=== PATIENT | female | born 1960 | race Caucasian/White ===

== ENCOUNTER → 2020-04-12 10:51 | Outpatient (BNVA) | payer BC, SELFPAY | PROVIDERS: Family Provider Family Medicine; PCP Family Medicine; Visit Provider Family Medicine | DX: I10 Essential (primary) hypertension (principal) | CPT/HCPCS: 80053; 80061; 82044; 85025 ==

== ENCOUNTER 2020-08-11 07:39 | Outpatient (CLI) | payer BC, SELFPAY ==
--- NOTE | 2020-08-11 07:44 | MM_ITS ---
WS: [id number] BILATERAL DIGITAL SCREENING MAMMOGRAPHY WITH CAD CLINICAL INFORMATION: SCREENING HISTORY: Screening mammogram. Hardening of implants COMPARISON: TECHNIQUE: Bilateral CC and MLO views. FINDINGS: Bilateral breast implants. Scattered fibroglandular densities bilaterally. No suspicious focal mass, asymmetry, calcifications, or architectural distortion. No evidence of malignancy. MM/[id number] IMPRESSION: BI-RADS: 2-Benign FOLLOW UP: 1 Year Follow-up Recommend return to annual screening mammography.
== END 2020-08-11 07:40 | disposition home or self-care (01) ==
LOC: RADSHAW 07:42
PROVIDERS: PCP Family Medicine; Visit Provider Family Medicine
DX: Z12.31 Encounter for screening mammogram for malignant neoplasm of breast (principal)
CPT/HCPCS: 77067

== ENCOUNTER → 2021-01-11 09:03 | Outpatient (BNVA) | payer OTHER, SELFPAY | PROVIDERS: PCP Family Medicine; Visit Provider Family Medicine | DX: I10 Essential (primary) hypertension (principal); L30.9 Dermatitis, unspecified; N95.1 Menopausal and female climacteric states; B00.1 Herpesviral vesicular dermatitis | CPT/HCPCS: 80053; 80061; 82043; 85025 ==

== ENCOUNTER 2021-02-10 13:12 | Emergency (ER) | payer OTHER, SELFPAY ==
[2021-02-10 13:20] VITALS: BP 129/85; PULSE 81; RESP 16; TEMP 37; O2SAT 97; BMI 21.9
[2021-02-10 13:27] VITALS: BP 129/85; PULSE 78; RESP 16; O2SAT 97
--- NOTE | 2021-02-10 13:28 | XR_ITS ---
WS: [id number] Right ankle,, 3 views, 02/10/2021 Clinical Data: pain Comparison: None. Findings: There is a transverse fracture of the distal right fibula below the ankle mortise. The medial malleolus is intact. The ankle mortise is normal. There is a small Achilles spur. XR/XR ankle RT min 3V* [id number] Impression: Undisplaced transverse fracture of distal right fibula.
--- NOTE | 2021-02-10 13:32 | ED_ITS ---
HPI - Extremity Problem General: Chief complaint: Extremity Injury, Lower Stated complaint: L ANKLE INJURY/PAIN Time Seen by Provider: 02/10/21 13:19 History of Present Illness: HPI Narrative: She did just put horse and horse trailer stepped on a rock and twisted her right ankle. She has pain to the lateral aspect into the posterior aspect she said she had immediate swelling. Hurts to bear weight. Complaint: joint swelling and joint pain Onset (ago): minute(s) Pain Consistency: constant Location: right and lower extremity Severity scale (1-10): 3 Quality: aching Radiation: none Relieving factors: immobilization Exacerbating factors: weight bearing Associated symptoms: Reports no associated symptoms; Deny fever(s) Review of Systems Const: Denies: fever(s) or chills Musc: Reports: joint pain and joint swelling Psych: Denies: anxiety PFSH ED PFSH: Medical History (Updated 01/11/21 @ 08:57 by Becca Jensen DO) Essential hypertension Hot flashes, menopausal Surgical History H/O section History of removal of cyst Family History Other Cancer Macular degeneration Social History Smoking and tobacco status: former smoker Alcohol intake: current Alcohol intake frequency: 3 or more drinks per day Alcohol type: wine and hard liquor Physical Exam Const: COMMON NORMALS: no acute distress Extremity: RIGHT LOWER EXTREMITY: Yes foot & digits (Swelling to the lateral malleus and tenderness to the posterior aspect) Right ankle: Yes ROM (Decreased) and Yes neurovascular exam (And tach) Psych: COMMON NORMALS: mental status grossly normal Course Vital Signs: Vital signs: Vital Signs Temperature 98.6 F 02/10/21 13:20 Pulse Rate 78 02/10/21 13:27 Respiratory Rate 16 02/10/21 13:27 Blood Pressure 129/85 02/10/21 13:27 Pulse Oximetry 97 02/10/21 13:27 Discharge Plan Discharge Prescriptions: No Action fluocinonide 0.05 % solution 1 applic topical DAILY PRN (Reason: rash) Qty: 60 RF: 0 acyclovir 400 mg tablet 400 mg PO TID Qty: 21 RF: 2 estradiol [Estrace] 0.01 % (0.1 mg/gram) cream 1 gm VAGINAL .twice weekly Qty: 42.5 RF: 0 amlodipine 10 mg tablet 10 mg PO DAILY Qty: 90 RF: 1 lisinopril 10 mg tablet 10 mg PO DAILY Qty: 90 RF: 3 venlafaxine 37.5 mg tablet 37.5 mg PO DAILY Qty: 90 RF: 3 Coding Level of Care Code ED Professor Of Forestry for Christiano Nolan
--- NOTE | 2021-02-10 13:57 | PC.NURSE ---
XR performed at bedside
--- NOTE | 2021-02-11 10:50 | DCPLANNER ---
manager of software development had message to schedule a follow up appointment for patient with ortho. manager of software development called the ortho clinic, spoke with Tiffany, gave clinic patients information. manager of software development was told that patients information would be printed and reviewed. Clinic will call patient with appointment information.
--- NOTE | 2021-02-18 15:27 | DCPLANNER ---
Patient had a follow up appointment scheduled for 02.14.[address] Cordero at [facility] - patient did attend appointment.
== END 2021-02-10 14:37 | disposition home or self-care (01) ==
PROVIDERS: Emergency Provider Nurse Practitioner Family; PCP Family Medicine
DX: M25.571 Pain in right ankle and joints of right foot (principal); I10 Essential (primary) hypertension; Z87.891 Personal history of nicotine dependence
CPT/HCPCS: 29515; 73610; 99283; E0114

== ENCOUNTER → 2021-02-14 14:20 | Outpatient (BNVA) | payer OTHER, SELFPAY | PROVIDERS: PCP Family Medicine; Visit Provider Specialist | DX: S82.64XA Nondisplaced fracture of lateral malleolus of right fibula, initial encounter for closed fracture (principal); X58.XXXA Exposure to other specified factors, initial encounter | CPT/HCPCS: 73610 ==

== ENCOUNTER 2021-02-14 15:11 | Outpatient (CLI) | payer OTHER, SELFPAY | END 2021-02-14 15:12 | disposition home or self-care (01) | LOC: SPT 15:12 | PROVIDERS: PCP Family Medicine; Visit Provider Specialist | DX: Z46.89 Encounter for fitting and adjustment of other specified devices (principal); S82.831D Other fracture of upper and lower end of right fibula, subsequent encounter for closed fracture with routine healing; X58.XXXD Exposure to other specified factors, subsequent encounter | CPT/HCPCS: L1902; L4361 ==

== ENCOUNTER → 2021-02-24 11:23 | Outpatient (BNVA) | payer OTHER, SELFPAY | PROVIDERS: PCP Family Medicine; Visit Provider Specialist | DX: S82.64XA Nondisplaced fracture of lateral malleolus of right fibula, initial encounter for closed fracture (principal); S82.831A Other fracture of upper and lower end of right fibula, initial encounter for closed fracture; X58.XXXA Exposure to other specified factors, initial encounter | CPT/HCPCS: 73610 ==

== ENCOUNTER → 2021-03-21 11:28 | Outpatient (BNVA) | payer OTHER, SELFPAY | PROVIDERS: PCP Family Medicine; Visit Provider Specialist | DX: S82.64XA Nondisplaced fracture of lateral malleolus of right fibula, initial encounter for closed fracture (principal); S82.831A Other fracture of upper and lower end of right fibula, initial encounter for closed fracture; X58.XXXA Exposure to other specified factors, initial encounter | CPT/HCPCS: 73610 ==

== ENCOUNTER → 2021-05-30 00:01 | Outpatient (BNVA) | payer OTHER, SELFPAY | PROVIDERS: PCP Family Medicine; Visit Provider Obstetrics & Gynecology | DX: L30.9 Dermatitis, unspecified (principal); R35.0 Frequency of micturition; R10.2 Pelvic and perineal pain | CPT/HCPCS: 87086 ==

== ENCOUNTER → 2021-06-17 11:23 | Outpatient (BNVA) | payer OTHER, SELFPAY | PROVIDERS: PCP Family Medicine; Visit Provider Obstetrics & Gynecology | DX: R10.2 Pelvic and perineal pain (principal) | CPT/HCPCS: 76830 ==

== ENCOUNTER → 2021-07-25 10:36 | Outpatient (BNVA) | payer OTHER, SELFPAY | PROVIDERS: PCP Family Medicine; Visit Provider Family Medicine | DX: Z78.0 Asymptomatic menopausal state (principal); Z13.6 Encounter for screening for cardiovascular disorders; Z12.39 Encounter for other screening for malignant neoplasm of breast; M25.562 Pain in left knee | CPT/HCPCS: 80053; 82043 ==

== ENCOUNTER 2021-09-01 09:56 | Outpatient (CLI) | payer OTHER, SELFPAY ==
--- NOTE | 2021-09-01 10:00 | MM_ITS ---
WS: [id number] BILATERAL SCREENING MAMMOGRAM WITH BRIDGET DISPLACEMENT VIEWS. CAD PERFORMED. HISTORY: Screening evaluation. COMPARISON: 08/11/2020, 02/03/2019 Bilateral craniocaudal and mediolateral like views are performed. Bridget displacement views in CC and MLO projection also performed. Breasts composition: The breasts are heterogeneously dense, which may obscure small masses. No ramos e in appearance of the implants. Implants are prepectoral with a few folds. No suspicious masses or c alcifications. MM/[id number] IMPRESSION: BI-RADS: 2-Benign FOLLOW-UP: 1 Year Follow-up
--- NOTE | 2021-09-01 10:36 | XR_ITS ---
WS: [id number] DEXA (DUAL ENERGY X-RAY ABSORPTIOMETRY) Bone mineral density was performed using a [employer] machine. HISTORY: post menopausal COMPARISON: None available. Lumbar spine BMD (L1-L4): 0.939 g/cm2 T score: -2.0 Z score: -0.3 Total hip BMD: Left: 0.924 g/cm2. T score: -0.7 Z score: 0.6 Right: 0.870 g/cm2. T score: -1.1 Z score: 0.2 10 year probability of a major osteoporotic fracture is 14%. XR/XR DEXA axial skeleton* [id number] IMPRESSION: OSTEOPENIA based upon the WHO classification for females.
== END 2021-09-01 09:57 | disposition home or self-care (01) ==
LOC: RADSHAW 09:59
PROVIDERS: PCP Family Medicine; Visit Provider Family Medicine
DX: Z12.39 Encounter for other screening for malignant neoplasm of breast (principal); Z78.0 Asymptomatic menopausal state; M85.80 Other specified disorders of bone density and structure, unspecified site
CPT/HCPCS: 77067; 77080

== ENCOUNTER → 2022-03-15 09:48 | Outpatient (BNVA) | payer OTHER, SELFPAY | PROVIDERS: PCP Family Medicine; Visit Provider Family Medicine | DX: I10 Essential (primary) hypertension (principal) | CPT/HCPCS: 80053; 80061; 82043; 85025 ==

== ENCOUNTER → 2022-06-07 15:44 | Outpatient (BNVA) | payer OTHER, SELFPAY | PROVIDERS: PCP Family Medicine; Visit Provider Podiatrist Foot & Ankle Surgery | DX: M79.672 Pain in left foot (principal); M79.89 Other specified soft tissue disorders | CPT/HCPCS: 73630; 99203 ==

== ENCOUNTER 2022-09-05 13:21 | Outpatient (CLI) | payer OTHER, SELFPAY ==
--- NOTE | 2022-09-05 13:26 | MM_ITS ---
WS: [id number] BILATERAL 3D TOMOSYNTHESIS DIGITAL SCREENING MAMMOGRAPHY WITH CAD CLINICAL INFORMATION: SCREENING HISTORY: Screening mammogram. No current complaints. COMPARISON: September 01, 2021 TECHNIQUE: Bilateral CC and MLO views. FINDINGS: Stable prepectoral implants. Scattered fibroglandular densities bilaterally. No suspicious focal mass, asymmetry, calcifications, or architectural distortion. No evidence of malignancy. MM/[place] [id number] IMPRESSION: BI-RADS: 2-Benign FOLLOW UP: 1 Year Follow-up Recommend return to annual screening mammography.
== END 2022-09-05 13:22 | disposition home or self-care (01) ==
LOC: RAD 13:22
PROVIDERS: PCP Family Medicine; Visit Provider Family Medicine
DX: Z12.31 Encounter for screening mammogram for malignant neoplasm of breast (principal)
CPT/HCPCS: 77063; 77067

== ENCOUNTER → 2023-05-11 08:59 | Outpatient (BNVA) | payer OTHER, SELFPAY | PROVIDERS: PCP Family Medicine; Visit Provider Family Medicine | DX: I10 Essential (primary) hypertension (principal) | CPT/HCPCS: 80053; 80061; 82043; 85025 ==

== ENCOUNTER → 2023-09-06 14:51 | Outpatient (BNVA) | payer OTHER, SELFPAY | PROVIDERS: PCP Family Medicine; Visit Provider Family Medicine | DX: M54.50 Low back pain, unspecified (principal); Z01.419 Encounter for gynecological examination (general) (routine) without abnormal findings | CPT/HCPCS: 88175 ==

== ENCOUNTER 2023-09-07 09:37 | Outpatient (CLI) | payer OTHER, SELFPAY ==
--- NOTE | 2023-09-07 09:42 | MM_ITS ---
WS: [id number] BILATERAL SCREENING DIGITAL BREAST MAMMOGRAPHY WITH BRIDGET DISPLACEMENT VIEWS. CAD PERFORMED. HISTORY: screening COMPARISON: 09/05/2022 and 09/01/2021 Bilateral craniocaudal and mediolateral oblique views are performed with tomosynthesis and SM. Bridget displacement views in CC and MLO projection also performed. Breasts composition: There are scattered areas of fibroglandular density. No suspicious masses or calcifications. Prepectoral implants are intact. IMPRESSION: MM/[place] [id number] BI-RADS: 2-Benign FOLLOW-UP: 1 Year Follow-up
== END 2023-09-07 09:38 | disposition home or self-care (01) ==
LOC: RAD 09:38
PROVIDERS: PCP Family Medicine; Visit Provider Family Medicine
DX: Z12.31 Encounter for screening mammogram for malignant neoplasm of breast (principal)
CPT/HCPCS: 77063; 77067

== ENCOUNTER → 2024-03-10 10:34 | Outpatient (BNVA) | payer OTHER, SELFPAY | PROVIDERS: PCP Family Medicine; Visit Provider Family Medicine | DX: I10 Essential (primary) hypertension (principal); M54.50 Low back pain, unspecified; N95.1 Menopausal and female climacteric states; L30.9 Dermatitis, unspecified | CPT/HCPCS: 80053; 80061 ==

== ENCOUNTER 2024-03-22 10:51 | Emergency (ER) | payer OTHER, SELFPAY ==
[2024-03-22 10:59] VITALS: BP 120/80; PULSE 94; RESP 18; O2SAT 100; BMI 21.0
--- NOTE | 2024-03-22 11:02 | ED_ITS ---
HPI - Nausea/Vomiting/Diarrhea 2 General: Chief complaint: Nausea/Vomiting/Diarrhea Stated complaint: diarrhea Time Seen by Provider: 03/22/24 10:58 Source: patient Mode of arrival: ambulatory Limitations: no limitations History of Present Illness: 63-year-old female states that she had w ent to [place] she had return Sunday states since then she has been having diarrhea. States she had some increased improvement of her diarrhea today but states she has felt like she is dehydrated and weak. She states multiple people on the trip and a lot of them have been sick with the same symptoms 's had diarrhea as well. She denies any fevers denies abdominal pain Associated nausea: No Associated symtoms: Reports fatigue; Denies chest pain, headache(s) or nausea Review of Systems 2 Const: Reports: fatigue; Denies: fever(s), chills, body aches or change in appetite ENMT: Denies: throat pain or dental pain Card: Denies: chest pain Resp: Denies: dyspnea GI: Reports: diarrhea; Denies: abdominal pain, nausea or vomiting Musc: Denies: neck pain or back pain Skin/Breast: Denies: rash Neuro: Denies: headache(s) PFSH ED 2 PFSH: Medical History Closed fracture of right distal fibula Essential hypertension Hot flashes, menopausal Surgical History H/O section History of removal of cyst Family History Mother Hypertension Denies family history of Colon cancer Ovarian cancer Diabetes Breast cancer Uterine cancer Thyroid disease Stroke Social History Smoking and tobacco/nicotine status: never used tobacco/nicotine Alcohol intake: current Alcohol intake frequency: 3 or more drinks per day Alcohol type: wine and hard liquor Substance/Drug Use: never Physical Exam 2 Const: COMMON NORMALS: no acute distress, patient oriented x3 and healthy appearing HENMT: COMMON NORMALS: normocephalic and atraumatic HEAD & SCALP: n ormocephalic and atraumatic Neck/C-Spine: COMMON NORMALS: full ROM and supple Chest: COMMONS NORMALS: normal inspection of the chest Resp: COMMON NORMALS: normal respiratory effort Cardio: COMMON NORMALS: regular rate and regular rhythm RATE: regular rate RHYTHM: regular rhythm GI: COMMON NORMALS: Normal to inspection, nondistended, normoactive bowel sounds present, Soft to palpation, non-tender and no masses PALPATION: Yes Soft to palpation Extremity: COMMON NORMALS: normal to inspection and full ROM Neuro: COMMON NORMALS: patient oriented x3, moves all extremities and no focal motor deficits Psych: COMMON NORMALS: mental status grossly normal, Normal thought process present and cooperative THOUGHT PROCESS: Normal thought process present Skin: COMMON NORMALS: no rashes or lesions noted and no wounds GENERAL SKIN EXAM: no rashes or lesions noted Course 2 Vital Signs: Vital signs: Vital Signs Temperature 98.2 F 03/22/24 11:19 Pulse Rate 94 03/22/24 11:19 Respiratory Rate 18 03/22/24 11:19 Blood Pressure 120/80 03/22/24 11:19 Pulse Oximetry 97 03/22/24 11:19 Oxygen Delivery Me thod Room Air 03/22/24 11:19 MDM - Nausea/Vomiting/Diarrhea Medical Decision Making Patient presents here in diarrhea after trip to [place] she was unable to give a stool sample we will treat with Flagyl will cover possible Giardia blood work here is normal she stable for discharge she is follow-up with PCP return if worsening. Medical Records I reviewed the patient's medical records. Lab Data I reviewed the patient's lab results. 03/22/24 11:15 03/22/24 11:15 Laboratory Results WBC 4.32 10^3/uL (3.29-11.43) 03/22/24 11:15 RBC 4.00 10^6/uL (3.85-5.65) 03/22/24 11:15 Hgb 13.10 g/dL (11.27-16.99) 03/22/24 11:15 Hct 39.1 % (36-47) 03/22/24 11:15 MCV 97.8 fl (85-98) 03/22/24 11:15 MCH 32.8 pg (27-33) 03/22/24 11:15 MCHC 33.5 g/dL (30-55) 03/22/24 11:15 RDW 11.6 % (12.1-15.1) L 03/22/24 11:15 Plt Count 161 10^3/cmm (157-399) 03/22/24 11:15 MPV 8.5 fL (7.4-10.4) 03/22/24 11:15 Neut % (Auto) 52.1 % 03/22/24 11:15 Lymph % (Auto) 28.0 % 03/22/24 11:15 [facility] % (Auto) 16.9 % 03/22/24 11:15 Eos % (Auto) 2.3 % 03/22/24 11:15 Baso % (Auto) 0.5 % 03/22/24 11:15 Neut # (Auto) 2.25 10^3/uL (1.8-7.7) 03/22/24 11:15 Lymph # (Auto) 1.2 10^3/uL (0.8-4.8) 03/22/24 11:15 [facility] # (Auto) 0.7 10^3/uL (0.2-0.9) 03/22/24 11:15 Eos # (Auto) 0.1 10^3/uL (0.0-0.8) 03/22/24 11:15 Baso # (Auto) 0.0 10^3/uL (0.0-0.1) 03/22/24 11:15 Nucleated RBC % (auto) 0 % 03/22/24 11:15 Nucleated RBCs # 0.0 /100WBC 03/22/24 11:15 Sodium 136 mmol/L (136-145) 03/22/24 11:15 Potassium 3.3 mmol/L (3.5-5.1) L 03/22/24 11:15 Chloride 97 mmol/L (98-107) L 03/22/24 11:15 Carbon Dioxide 29 mmol/L (22-29) 03/22/24 11:15 Anion Gap 13.3 (5-19) 03/22/24 11:15 BUN 18 mg/dL (8-23) 03/22/24 11:15 Creatinine 0.7 mg/dL (0.5-0.9) 03/22/24 11:15 GFR Calculation 84.2 mL/min (90-130) L 03/22/24 11:15 Glucose 111 mg/dL (65-115) 03/22/24 11:15 Calculated Osmolality 285 mOsm/kg (285-295) 03/22/24 11:15 Calcium 9.6 mg/dL (8.5-10.5) 03/22/24 11:15 Total Bilirubin 0.6 mg/dL (0.15-1.2) 03/22/24 11:15 AST 35 U/L (0-32) H 03/22/24 11:15 ALT 52 U/L (0-33) H 03/22/24 11:15 Alkaline Phosphatase 79 U/L (35-105) 03/22/24 11:15 Total Protein 7.3 g/dL (6.6-8.7) 03/22/24 11:15 Albumin 4.1 g/dL (3.5-5.2) 03/22/24 11:15 Globulin 3.2 g/dL (1.3-4.6) 03/22/24 11:15 Lipase 97 U/L (13-60) H 03/22/24 11:15 No radiology studies performed this visit Discharge Plan Discharge Patient Disposition: Home Clinical Impression: Traveler's diarrhea Condition: Stable Prescriptions: New ondansetron 4 mg tablet,disintegrating 4 mg PO Q6H PRN (Reason: nausea and vomiting) Qty: 14 0RF metronidazole 500 mg tablet 500 mg PO Q12H Qty: 10 0RF No Action acyclovir 400 mg tablet 400 mg PO TID PRN (Reason: cold sores) Qty: 30 1RF Rx Instructions: Take at outset of coldsores lisinopril 10 mg tablet 10 mg PO DAILY Qty: 90 3RF venlafaxine [Effexor XR] 37.5 mg capsule,extended release 24hr 37.5 mg PO DAILY Qty: 90 1RF hydrocortisone 2.5 % cream See Rx Instructions .ROUTE .COMPLEX Rx Instructions: APPLY ONLY TO AFFECTED AREAS ON THE FACE TWICE DAILY FOR 2 WEEKS OR UNTIL RESOLVED, THEN NEEDED meloxicam 15 mg tablet 15 mg PO DAILY fluorouracil 5 % cream 1 applic topical BID PRN (Reason: SUN SPOTS) clobetasol 0.05 % cream 1 applic topical BID PRN (Reason: Skin Irritation) amlodipine 10 mg tablet 10 mg PO DAILY estradiol 0.01 % (0.1 mg/gram) cream 1 appful vaginal BID Rx Instructions: USE 1 GRAM VAGINALLY TWICE A WEEK DIRECTED Discharge Orders: Discharge ED (Routine); Ordered 03/22/24 Ordered By: Katie Lopez Referrals: Becca Jensen DO [Primary Care Provider] - 1-3 days Discharge Diet: Advance as tolerated Discharge Activity: Resume usual activity Patient Instructions: Acute Diarrhea (ED) Coding Level of Care Code ED Sort Operations Supervisor for Christiano Nolan
[2024-03-22 11:19] VITALS: BP 120/80; PULSE 94; RESP 18; TEMP 36.8; O2SAT 97
[2024-03-22 11:21] LABS: Basophils % 0.5 %; Eosinophils # 0.1 10^3/uL (0.0-0.8); Eosinophils % 2.3 %; Hematocrit 39.1 % (36-47); Lymphocytes # 1.2 10^3/uL (0.8-4.8); Mean Corpuscular HGB Conc 33.5 g/dL (30-55); Mean Corpuscular Hemoglobin 32.8 pg (27-33); Mean Corpuscular Volume 97.8 fl (85-98); Mean Platelet Volume 8.5 fL (7.4-10.4); Monocytes # 0.7 10^3/uL (0.2-0.9); Monocytes % 16.9 %; Neutrophils # 2.25 10^3/uL (1.8-7.7); Neutrophils % 52.1 %; Nucleated Red Blood Cells % 0 %; Platelet Count 161 10^3/cmm (157-399); Red Cell Distribution Width 11.6 % (12.1-15.1); White Blood Count 4.32 10^3/uL (3.29-11.43)
[2024-03-22 11:38] LABS: Alanine Aminotransferase 52 U/L (0-33); Albumin Level 4.1 g/dL (3.5-5.2); Alkaline Phosphatase 79 U/L (35-105); Anion Gap 13.3 (5-19); Aspartate Amino Transferase 35 U/L (0-32); Blood Urea Nitrogen 18 mg/dL (8-23); Calcium 9.6 mg/dL (8.5-10.5); Carbon Dioxide 29 mmol/L (22-29); Chloride 97 mmol/L (98-107); Creatinine Clr Calc Pharmacy 65.2732; Globulin 3.2 g/dL (1.3-4.6); Glomerular Filtration Rate 84.2 mL/min (90-130); Glucose 111 mg/dL (65-115); Lipase 97 U/L (13-60); Osmolality Calculated 285 mOsm/kg (285-295); Potassium 3.3 mmol/L (3.5-5.1); Sodium 136 mmol/L (136-145); Total Bilirubin 0.6 mg/dL (0.15-1.2); Total Protein 7.3 g/dL (6.6-8.7)
[2024-03-22] MEDS: sodium chloride 0.9% 1,000 ML 999 ML IV (11:39)
[2024-03-22] MEDS: ondansetron 2 mg/ML SDV 2 mL 4 MG IVP (11:40)
[2024-03-22 12:50] VITALS: BP 110/63; PULSE 85; RESP 16; O2SAT 91
[2024-03-22 13:42] LABS: C.Diff PCR (Lab) NEGATIVE (Negative)
== END 2024-03-22 12:51 | disposition home or self-care (01) ==
PROVIDERS: Emergency Provider Emergency Medicine; PCP Family Medicine
DX: A08.8 Other specified intestinal infections (principal); I10 Essential (primary) hypertension
CPT/HCPCS: 80053; 83690; 85025; 87493; 96374; 99284; J2405; J7030

== ENCOUNTER 2024-09-08 08:59 | Outpatient (CLI) | payer OTHER, SELFPAY ==
--- NOTE | 2024-09-08 09:03 | MM_ITS ---
WS: [id number] BILATERAL SCREENING DIGITAL BREAST MAMMOGRAPHY WITH BRIDGET DISPLACEMENT VIEWS. CAD PERFORMED. HISTORY: SCREENING COMPARISON: 09/07/2023, 09/05/2022 Bilateral craniocaudal and mediolateral oblique views are performed with tomosynthesis and SM. Bridget displacement views in CC and MLO projection also performed. Breasts composition: The breasts are heterogeneously dense, which may obscure small masses. Prepectoral implants are intact. No suspicious masses or calcifications. No distortion of either [facility] [facility]. MM/MM scr BI tomosynthesis [id number] IMPRESSION: BI-RADS: 2 - Benign FOLLOW-UP: 1 Year Follow-up
== END 2024-09-08 09:00 | disposition home or self-care (01) ==
PROVIDERS: PCP Family Medicine; Visit Provider Family Medicine
DX: Z12.31 Encounter for screening mammogram for malignant neoplasm of breast (principal)
CPT/HCPCS: 77063; 77067

== ENCOUNTER → 2025-02-03 11:37 | Outpatient (BNVA) | payer OTHER, SELFPAY | PROVIDERS: PCP Family Medicine; Visit Provider Family Medicine | DX: I10 Essential (primary) hypertension (principal) | CPT/HCPCS: 80053; 80061; 84439; 84443; 85025 ==

== ENCOUNTER 2025-07-28 06:07 | Day surgery (SDC) | payer OTHER, SELFPAY ==
[2025-07-28 06:20] VITALS: BP 119/67; PULSE 76; RESP 18; TEMP 36.6; O2SAT 96; BMI 21.9
--- NOTE | 2025-07-28 06:59 | ANES.PREANE2 ---
Pre-Anesthetic Assessment Height/Weight: Height 1.57 m Weight 54.431 kg Temp Pulse Resp BP Pulse Ox O2 Del Method 97.9 F 76 18 119/67 96 Room Air 07/28/25 06:20 07/28/25 06:20 07/28/25 06:20 07/28/25 06:20 07/28/25 06:20 07/28/25 06:20 Preop Diagnosis: screening Operation Date: 07/28/25 07:00 Proposed Procedures p Colonoscopy 06162 G0121 Z12.11(Not Applicable) - Franky Mendez MD Familial anesthetic complications: none Was Beta Danny taken within 24 hours: N/A Was Clonidine taken within 24 hours: N/A Last intake: Intake Last Liquid Date 07/27/25 Last Liquid Time 23:00 Last Solid Date 07/26/25 Last Solid Time 19:00 Social Alcohol (2-3 glasses of red wine/night) and Tobacco Exam alert and oriented x 3 Airway Submandibular: within normal limits Cervical ROM: within normal limits Mallampati: Class II Dentition: full History/ROS No significant history except as noted Pulmonary None reported CV/HEM Hypertension None reported Hepatic None reported GI None reported Metabolic None reported Musc/skel None reported Neuropsych None reported Anesthetic Plan ASA status: 2 Anesthesia: Anesthesia Evaluation and MAC Risk of > 500 ml blood loss (7ml/kg in children): No Medications/Allergies Home Medications ?Medication ?Instructions ?Recorded ?Confirmed ?Last Taken ?Type acyclovir 400 mg tablet 400 mg PO TID PRN cold sores #30 05/11/23 07/28/25 Unknown Rx tabs clobetasol 0.05 % topical cream 1 applic topical BID PRN Skin 03/22/24 07/28/25 Unknown History Held on 02/03/25. Irritation Instructions: Home Medication placed on hold at Doctor's office estradiol 0.01% (0.1 mg/gram) 1 appful vaginal BID 03/22/24 07/28/25 07/23/25 History vaginal cream venlafaxine 37.5 mg 37.5 mg PO DAILY #90 caps 02/03/25 07/28/25 07/27/25 Rx capsule,extended release 24 hr (Effexor XR) meloxicam 15 mg tablet 15 mg PO DAILY #90 tabs 03/30/25 07/28/25 07/27/25 Rx lisinopril 10 mg tablet 10 mg PO DAILY #90 tabs 04/20/25 07/28/25 07/27/25 Rx amlodipine 10 mg tablet 10 mg PO DAILY #60 tabs 05/19/25 07/28/25 07/28/25 Rx Allergies Allergy/AdvReac Type Severity Reaction Status Date / Time No Known Allergies Allergy Verified 07/28/25 06:17 Current Medications Generic Name Dose Route Start Last Admin Trade Name Edwinq PRN Reason Stop Dose Admin Sodium Chloride 1,000 mls @ 15 mls/hr 07/28/25 06:10 07/28/25 06:30 Sodium Chloride 0.9% IV 07/29/25 06:09 15 mls/hr .Q24H PRN Administration COLONOSCOPY FLUIDS PFSH Anesthesia Medical History Osteopenia Eczema MDD (major depressive disorder) Closed fracture of right distal fibula Essential hypertension Hot flashes, menopausal Surgical History H/O section History of removal of cyst Family History Mother Hypertension Denies family history of Colon cancer Ovarian cancer Diabetes Breast cancer Uterine cancer Thyroid disease Stroke Social History Smoking and tobacco/nicotine status: former use of tobacco/nicotine Alcohol intake: current Alcohol intake frequency: 3 or more drinks per day Alcohol type: wine and hard liquor Substance/Drug Use: never
--- NOTE | 2025-07-28 07:06 | W.PM.OPSFHP ---
Same Day Surgery H&P Indication for Procedure/HPI DATE OF PROCEDURE: July 28, 2025 CHIEF COMPLAINT/INDICATIONFOR SURGICAL PROCEDURE: screening colonoscopy PREOP DIAGNOSIS: screening colonoscopy PLANNED PROCEDURE: Operation Date: 07/28/25 07:00 Proposed Procedures p Colonoscopy 05138 G0121 Z12.11(Not Applicable) - Franky Mendez MD Medications/Allergies* Home Medications ?Medication ?Instructions ?Recorded ?Confirmed ?Type clobetasol 0.05 % topical cream 1 applic topical BID PRN Skin 03/22/24 07/28/25 History Held on 02/03/25. Irritation Instructions: Home Medication placed on hold at Doctor's office estradiol 0.01% (0.1 mg/gram) 1 appful vaginal BID 03/22/24 07/28/25 History vaginal cream Allergies/Adverse Reactions Allergy/AdvReac Type Severity Reaction Status Date / Time No Known Allergies Allergy Verified 07/28/25 06:17 Current Medications: Generic Name Dose Route Start Last Admin Trade Name Freq PRN Reason Stop Dose Admin Sodium Chloride 1,000 mls @ 15 mls/hr 07/28/25 06:10 07/28/25 06:30 Sodium Chloride 0.9% IV 07/29/25 06:09 15 mls/hr .Q24H PRN Administration COLONOSCOPY FLUIDS Pertinent History/Comorbid Conditions* Medical History (Updated 02/03/25 @ 11:26 by Sagar Tejada MD) Osteopenia Eczema MDD (major depressive disorder) Closed fracture of right distal fibula Essential hypertension Hot flashes, menopausal Surgical History (Updated 01/19/20 @ 15:49 by Becca Jensen DO) H/O section History of removal of cyst Family History (Updated 05/30/21 @ 08:08 by Jimena Hernandez) Hypertension Mother Denies family history of Colon cancer Ovarian cancer Diabetes Breast cancer Uterine cancer Thyroid disease Stroke Social History Smoking and tobacco/nicotine status: former use of tobacco/nicotine Alcohol intake: current Alcohol intake frequency: 3 or more drinks per day Alcohol type: wine and hard liquor Substance/Drug Use: never Pertinent Exam Findings alert, oriented x 3, clear to auscultation bilaterally, regular rate & rhythm and procedure specific exam findings abdomen soft, nt, nd Recommendations Risks and benefits of procedure reviewed and Patient/family agree to proceed Surgery/Procedure today Coding Level of Care Code Acute Code for Chg Fwd
[2025-07-28 07:33] VITALS: BP 104/66; PULSE 75; RESP 18; TEMP 36.4; O2SAT 100
--- NOTE | 2025-07-28 08:14 | ANE.PACU2 ---
Inpatient post-anesthesia follow up: Airway intact: Yes Vital signs: Temperature 97.6 F Pulse Rate 75 Respiratory Rate 18 Blood Pressure 104/66 Pulse Oximetry 100 Oxygen Delivery Me thod Room Air Oxygen Flow Rate Fraction of Inspir ed Oxygen Hydration adequate: Yes Nausea and vomiting: No Pain level: 1 Mental status: Baseline
== END 2025-07-28 08:14 | disposition home or self-care (01) ==
PROVIDERS: PCP Family Medicine; Visit Provider Student in an Organized Health Care Education/Training Program
PROC: 0DJD8ZZ Inspection of Lower Intestinal Tract, Via Natural or Artificial Opening Endoscopic (ICD-10-PCS; CPT 45378; principal; 2025-07-28 07:00)
DX: Z12.11 Encounter for screening for malignant neoplasm of colon (principal); K64.4 Residual hemorrhoidal skin tags; F32.9 Major depressive disorder, single episode, unspecified; I10 Essential (primary) hypertension; Z87.891 Personal history of nicotine dependence
CPT/HCPCS: 45378; J2371; J2704; J3490; J7030; J9999

== ENCOUNTER 2025-09-09 13:31 | Outpatient (CLI) | payer MEDICARE, SELFPAY ==
--- NOTE | 2025-09-09 13:40 | MM_ITS ---
WS: [id number] BILATERAL 3D TOMOSYNTHESIS DIGITAL SCREENING MAMMOGRAPHY WITH CAD CLINICAL INFORMATION: screening HISTORY: Screening mammogram. No current complaints. COMPARISON: 2023 TECHNIQUE: Bilateral CC and MLO views. FINDINGS: Bilateral breast implants appear intact The breasts are composed of heterogeneous fibroglandular density tissue, which can limit the detection of small underlying mass lesions. No suspicious mass, asymmetry, calcifications, or architectural distortion. No evidence of malignancy. MM/MM [facility] tomosynthesis [id number] IMPRESSION: DENSITY: The breasts are heterogeneously dense, which may obscure small masses. BI-RADS: 2 - Benign FOLLOW UP: 1 Year Follow-up Recommend return to annual screening mammography.
--- NOTE | 2025-09-09 14:30 | XR_ITS ---
WS: [id number] DEXA (DUAL ENERGY X-RAY ABSORPTIOMETRY) Bone mineral density was performed using a [employer] machine. HISTORY: screening COMPARISON: 09/01/2021 Lumbar spine BMD (L1-L4): 0.928 g/cm2 T score: -2.1 Z score: -0.2 Total hip BMD: Left: 0.895 g/cm2. T score: -0.9 Z score: 0.6 Right: 0.852 g/cm2. T score: -1.2 Z score: 0.2 10 year probability of a major osteoporotic fracture is 16.8%. Compared to the prior study from 09/01/2021. Lumbar spine bone mineral density has decreased by 1.2%. Bilateral hips bone mineral density has decreased by 2.6%. XR/XR DEXA axial skeleton* [id number] IMPRESSION: OSTEOPENIA based upon the WHO classification for females. Significant decrease in bone mineral density within the hips since the prior .
== END 2025-09-09 13:32 | disposition home or self-care (01) ==
LOC: RAD 13:33
PROVIDERS: PCP Family Medicine; Visit Provider Family Medicine
DX: Z12.31 Encounter for screening mammogram for malignant neoplasm of breast (principal); Z13.820 Encounter for screening for osteoporosis; M81.0 Age-related osteoporosis without current pathological fracture; R92.323 Mammographic fibroglandular density, bilateral breasts; R92.333 Mammographic heterogeneous density, bilateral breasts; M85.88 Other specified disorders of bone density and structure, other site
CPT/HCPCS: 77063; 77067; 77080